=== PATIENT | male | born 1960 | race African-American/Black ===

== ENCOUNTER 2021-06-30 10:56 | Outpatient (REF) | payer BC, SELFPAY ==
[2021-06-30 11:17] LABS: MANUAL DIFF FLAG NO
[2021-06-30 11:42] LABS: Basophils Percent Auto 0.5 % (0-2); Eosinophils Absolute Auto 0.1 X10*3/uL (0.0-0.4); Hemoglobin 16.8 g/dl (14.0-18.0); Imm Gran Abs Auto 0.02 X10*3/uL (0.00-0.03); Imm Gran Pct Auto 0.3 % (0.0-0.4); Lymphocytes Percent Auto 51.6 % (20-40); Mean Corpuscular Hemoglobin 32.7 pg (27.0-33.0); Mean Corpuscular Volume 93.6 fL (80.0-98.0); Mean Platelet Volume 8.7 fL (9.4-12.4); Monocytes Absolute Auto 0.5 X10*3/uL (0.1-1.2); Monocytes Percent Auto 8.5 % (2-11); Neutrophils Absolute Auto 2.2 x10*3/uL (2.0-8.3); Neutrophils Percent Auto 38.1 % (45-73); Platelet Count 251 X10*3/uL (160-400); Red Blood Count 5.13 X10*6/uL (4.60-5.80); Red Cell Distribution Width 12.7 % (11.0-16.0); White Blood Count 5.9 X10*3/uL (4.8-10.8)
[2021-06-30 12:22] LABS: Alanine Aminotransferase 13 U/L (0-40); Albumin Level 4.4 g/dL (3.5-5.0); Alkaline Phosphatase 79 U/L (39-117); Anion Gap 14 (12-20); Aspartate Amino Transferase 16 U/L (5-37); Bilirubin Total 0.7 mg/dL (0.0-1.0); Blood Urea Nitrogen 10 mg/dL (9-16); Calcium 9.8 mg/dL (8.4-10.2); Carbon Dioxide 24 mmol/L (22-29); Chloride 106 mmol/L (96-108); Cholesterol 201 mg/dL; Estimated Glomerular Filt Rate > 60; Glucose Fasting 80 mg/dL (60-99); HDL Cholesterol 46 mg/dL; LDL Cholesterol Calculated 114 mg/dl; Potassium 4.7 mmol/L (3.3-5.1); Sodium 139 mmol/L (135-145); Triglycerides 206 mg/dL
[2021-06-30 12:34] LABS: Thyroid Stimulating Hormone 0.89 uIU/mL (0.32-4.0)
== END 2021-06-30 10:57 | disposition home or self-care (01) ==
LOC: HO.LAB 10:56
PROVIDERS: PCP Internal Medicine; Visit Provider Internal Medicine
DX: Z00.00 Encounter for general adult medical examination without abnormal findings (principal)
CPT/HCPCS: 36415; 80053; 80061; 84443; 85025

== ENCOUNTER → 2021-10-20 08:49 | Outpatient (BNVA) | payer BC, SELFPAY | PROVIDERS: PCP Internal Medicine; Visit Provider Urology | DX: N52.9 Male erectile dysfunction, unspecified (principal) ==

== ENCOUNTER 2021-11-02 03:50 | Emergency (ER) | payer BC, SELFPAY ==
--- NOTE | ~2021-11-02 | XR_ITS ---
EXAMINATION: XR PELVIS: XR HIP, LEFT CLINICAL INFORMATION: Pain COMPARISON: None TECHNIQUE: Two views of the left hip, with single AP view of the pelvis. FINDINGS: No acute fracture or dislocation. Femoral heads are spherical. Mild bilateral hip joint space narrowing. Small bilateral acetabular marginal osteophytes. Soft tissues unremarkable. XR/XR hip LT w PEL1V IMPRESSION: No acute fracture or dislocation. Mild degenerative changes.
[2021-11-02 03:58] VITALS: BP 169/85; PULSE 63; RESP 18; TEMP 36.6; O2SAT 98; BMI 23.7
--- NOTE | 2021-11-02 04:21 | ED.GENADULT ---
HPI - General Adult General Chief complaint: Extremity Injury, Lower Stated complaint: L hip/buttock pain (over a week) Time Seen by Provider: 11/02/21 04:19 Source: patient Limitations: no limitations History of Present Illness HPI narrative: This is a 61-year-old male who complains of pain in his left hip area for about a week and half. Patient denies any injury. He states he does work out at the gym. He states that typically when he has pain that goes away in time but this has persisted for several days. States he has no pain when he sitting down but only has pain with weight-bearing. He denies any low back pain. He denies any numbness or weakness in his left leg he denies any urinary symptoms or abdominal pain. Denies a prior history of arthritis. Related Data Previous Rx's Medication Instructions Recorded lisinopril 20 mg tablet 20 mg PO DAILY #90 tabs 05/06/21 sildenafil 100 mg tablet 100 mg PO DIRECTED #6 tabs 05/06/21 sildenafil 100 mg tablet 100 mg PO DAILY PRN sexual 10/20/21 activity 90 days #12 tabs meloxicam 7.5 mg tablet 7.5 mg PO DAILY #30 tabs 11/02/21 Allergies Allergy/AdvReac Type Severity Reaction Status Date / Time No Known Allergies Allergy Verified 11/02/21 03:59 Review of Systems Constitutional: Constitutional: Denies fever(s) Gastrointestinal: Gastrointestinal: Reports no additional gastrointestinal complaints Genitourinary: Genitourinary: Reports no additional male genitourinary complaints Musculoskeletal: Musculoskeletal: Denies back pain and Denies numbness Neurologic: Denies focal weakness, Denies numbness and Denies paresthesias [facility] Past Medical History Medical History Erectile dysfunction Hypertension Social History Social History Housing: Apartment Alcohol intake: never Patient Tobacco Use Status: Current everyday Tobacco user Tobacco use type: Cigarette Cigarettes Per Day: 10 e-Cigarette/Vaping Use: Never Used Advance Directives: No service: No Current occupational status: employed Cognitive needs: No Hearing needs: No Vision needs: No Physical Exam ED Vital Signs: Vital Signs - 24 hr 11/02/21 03:58 Temperature 97.9 F Pulse Rate 63 Respiratory Rate 18 Blood Pressure 169/85 H Pulse Oximetry 98 Oxygen Delivery Method Room Air BMI result Body Mass Index 23.7 Const General: no acute distress Orientation/consciousness: patient oriented x3 HENMT Head: Yes normal to inspection General nose exam: Normal external nose present Mouth: moist mucous membranes Throat: Yes posterior oropharynx normal, Yes tonsils normal and Yes uvula midline Eyes Eyelids: Yes eyelids normal Conjunctivae: conjunctivae normal Pupils: Equal, round and reactive pupils present Neck Neck: Yes supple Resp Effort & Inspection: normal respiratory effort Auscultation: clear to auscultation bilaterally Cardio Rate: regular rate Rhythm: regular rhythm Heart sounds: S1 normal heart sound present, S2 normal heart sound present, no gallops, no murmurs and no rubs GI Inspection: No distended Palpation (GI): Soft to palpation and nontender Auscultation: normal bowel sounds Back/Spine/Pelvis Other: No lumbar spine tenderness Skin General skin exam: other (Warm and dry) Neuro General: patient oriented x3 and CN's II-XI intact bilaterally Cranial nerves: Yes Equal, round and reactive pupils present Extrem Other: Mildly tender over left hip. No left buttock tenderness. Straight leg test negative General: Yes no pedal edema Psych Affect: normal affect Attitude: cooperative Medical Decision Making MDM Narrative Medical decision making narrative: Patient with left hip pain, worse on weight-bearing, 0 pain at rest. Patient may have osteoarthritis. Hip shows mild arthritic changes. Will start the patient on Mobic and the patient can follow-up with his primary care physician or Orthopedics Imaging Data Left hip and pelvis x-ray: My impression: Some sclerosis of the articular surface of the acetabulum, no osteoblastic or osteolytic lesions, no fracture Discharge Plan Discharge Clinical Impression: Arthritis of hip Patient Disposition: Home, Self-Care Instructions: Osteoarthritis (ED) Additional Instructions: Follow-up with her primary care physician, or with Dr. Morris of Orthopedic Prescriptions: New meloxicam 7.5 mg tablet 7.5 mg PO DAILY Qty: 30 0RF Rx Instructions: May increase to 2 tabs daily if no improvement in 7 days No Action lisinopril 20 mg tablet 20 mg PO DAILY Qty: 90 8RF sildenafil 100 mg tablet 100 mg PO DIRECTED Qty: 6 3RF sildenafil 100 mg tablet 100 mg PO DAILY PRN (Reason: sexual activity) 90 Days Qty: 12 3RF Rx Instructions: administer 60 minutes before intended activity Referrals: Irwin Morris MD [Physician] -
--- NOTE | 2021-11-02 04:41 | PC.NURSE ---
Pt returns from XRay on bed @ this time. Pt aware of plan to await XRay results.
[2021-11-02] MEDS: Ibuprofen 600 MG TABLET PO (05:12)
== END 2021-11-02 05:16 | disposition home or self-care (01) ==
PROVIDERS: Emergency Provider Emergency Medicine; PCP Internal Medicine
DX: M16.12 Unilateral primary osteoarthritis, left hip (principal)
CPT/HCPCS: 73502; 99283

== ENCOUNTER → 2022-08-09 08:39 | Outpatient (REF) | payer BC, SELFPAY ==
--- NOTE | 2022-08-09 08:44 | ECG_ITS ---
Test Reason : palpitations Blood Pressure : / mmHG Vent. Rate : 070 BPM Atrial Rate : 070 BPM P-R Int : 174 ms QRS Dur : 094 ms QT Int : 380 ms P-R-T Axes : 057 029 030 degrees QTc Int : 410 ms Normal sinus rhythm Nonspecific T wave abnormality Abnormal ECG No previous ECGs available Referred By: Wesley Bhatt Electronically Signed By:ADINA LÓPEZ MD
[2022-08-09 08:51] LABS: MANUAL DIFF FLAG NO
[2022-08-09 09:19] LABS: Basophils Percent Auto 0.3 % (0-2); Eosinophils Absolute Auto 0.1 X10*3/uL (0.0-0.4); Eosinophils Percent Auto 1.1 % (0-4); Hematocrit 44.7 % (42.0-52.0); Hemoglobin 15.3 g/dl (14.0-18.0); Imm Gran Abs Auto 0.02 X10*3/uL (0.00-0.03); Imm Gran Pct Auto 0.3 % (0.0-0.4); Lymphocytes Absolute Auto 2.5 X10*3/uL (1.2-4.9); Lymphocytes Percent Auto 38.9 % (20-40); Mean Corpuscular HGB Conc 34.2 g/dl (31.0-36.0); Mean Corpuscular Hemoglobin 31.7 pg (27.0-33.0); Mean Corpuscular Volume 92.5 fL (80.0-98.0); Mean Platelet Volume 9.2 fL (9.4-12.4); Monocytes Absolute Auto 0.4 X10*3/uL (0.1-1.2); Monocytes Percent Auto 6.8 % (2-11); Neutrophils Absolute Auto 3.3 x10*3/uL (2.0-8.3); Neutrophils Percent Auto 52.6 % (45-73); Platelet Count 260 X10*3/uL (160-400); Red Blood Count 4.83 X10*6/uL (4.60-5.80); Red Cell Distribution Width 12.5 % (11.0-16.0); White Blood Count 6.3 X10*3/uL (4.8-10.8)
[2022-08-09 10:41] LABS: Anion Gap 17 (12-20); Calcium 9.9 mg/dL (8.4-10.2); Carbon Dioxide 24 mmol/L (22-29); Chloride 103 mmol/L (96-108); Estimated Glomerular Filt Rate > 60; Glucose Random 123 mg/dL (60-115); Potassium 4.7 mmol/L (3.3-5.1); Sodium 139 mmol/L (135-145); Thyroid Stimulating Hormone 0.54 uIU/mL (0.32-4.0)
[2022-08-09 12:09] LABS: Blood Urea Nitrogen 14 mg/dL (9-16)
== END ==
LOC: HO.CARD 08:39
PROVIDERS: PCP Internal Medicine; Visit Provider Internal Medicine
DX: R00.2 Palpitations (principal); D64.9 Anemia, unspecified; E03.9 Hypothyroidism, unspecified
CPT/HCPCS: 36415; 80048; 84443; 85025; 93005

== ENCOUNTER → 2022-08-17 07:47 | Outpatient (REF) | payer BC, SELFPAY ==
--- NOTE | 2022-08-17 07:52 | CA_ITS ---
Transthoracic Echocardiogram Patient (Last, First, Middle): Gerald Diaz, Gender: Male Date of : 1960 Age: 62 Procedure Date: 08/17/2022 Procedure Type: Transthoracic Echocardiogram Location: OP Height: 182.88 cm Weight: 83.92 kg BSA: 2.06 m2 Heart Rate: 58 bpm BP: 138 / 68 mmHg Manager Resource: SB Referring MD: Wesley Bhatt MD Symptoms: R00.2 - Palpitations Study Quality: Adequate ECG Rhythm: Bradycardia Conclusions: - The left ventricular systolic function is hyperdynamic. The visually estimated ejection fraction is >70%. - No obvious valvular pathology seen on this study. Findings Left Ventricle Normal left ventricular cavity size. There is normal left ventricular wall thickness. The left ventricular systolic function is hyperdynamic. The visually estimated ejection fraction is >70%. There is no evidence of regional wall motion abnormalities. Diastolic function is normal for age. Right Ventricle Normal right ventricular cavity size and systolic function. Atria Both atria are normal in size. Aortic Valve There is a normal trileaflet aortic valve. There is no aortic valve stenosis. There is no aortic valve regurgitation. Mitral Valve The mitral valve appears normal. There is no mitral valve regurgitation. There is no mitral valve stenosis. Pulmonic Valve The pulmonic valve is likely normal. Tricuspid Valve Normal tricuspid valve structure. There is no tricuspid valve regurgitation. Tricuspid regurgitation envelope is inadequate for calculation of right ventricular systolic pressure. Great Vessels The asc aorta is normal in size. Venous The inferior vena cava is normal in size and collapses greater than 50% with inspiration. Pericardium/Pleural There is no evidence of pericardial effusion. Prior Study Comparison No prior study available for comparison. Recommendations, Care & Conclusions No obvious valvular pathology seen on this study. Measurements 2D Linear Measurements IVSd: 0.87 0.6-0.9/0.6-1.0 cm LVIDd: 4.70 3.9-5.3/4.2-5.9 cm LVIDd Index: 2.28 2.4-3.2/2.2-3.1 cm/m2 LVIDs: 2.71 2.0-3.6 cm LVPWd: 0.88 0.7-1.1 cm LA Diam: 2.80 2.7-3.8/3.0-4.0 cm LAIDs Index: 1.36 1.5-2.3 cm/m2 LV Mass: 170.96 67-162/88-224 g LV Mass Index: 82.99 43-95/49-115 g/m2 LVOT Diam: 2.50 3.0+(-)1.3 cm 2D Systolic Function EF 4C: 77.20 >55% EF 2C: 73.80 >55% EF BiP: 75.40 >55% Mitral Valve MV Pk E: 0.51 MV PK A: 0.64 MV Decel Time: 333.00 E/A: 0.80 E'Lateral: 6.85 E'Medial: 7.07 E/E' Med: 7.30 E/E' Lat: 7.50 PHT: 98.00 MVA PHT: 2.24 Decel Walsh: 1.54 Aortic Valve AoV Pk Jaiden: 0.85 AoV Pk Grad: 3.00 LEONEL: 4.20 LVOT LVOT Pk Jaiden: 0.73 LVOT Mn Jaiden: 0.49 LVOT VTI: 0.16 LVOT Pk Grad: 2.00 LVOT Mn Grad: 1.00 LVOT Diam: 2.50 LVOT Area: 4.91 Diastolic Function MV Pk E: 0.51 MV Pk A: 0.64 E/A: 0.80 E'Medial: 7.07 E/E' Med: 7.30 E' Laterial: 6.85 E/E' Lat: 7.50 Right Ventricle TAPSE (mm): 18.90 TVS' Jaiden: 12.70 Tricuspid Valve RA Press: 3.00 Great Vessels Aorta Sinus of Valsalva: 3.70 2.0-3.5 cm Ao Asc: 3.80 2.1-3.4 cm Pulmonary Veins Pulm Vein S/D 1.20 Pulmonary Valve PV Pk Jaiden: 0.93 Peak PV Grad: 3.00 Updated in Other Vendor System with Status of Final Franko Ruvalcaba MD electronically signed on 08/18/2022 12:30:20 PM with status of Final
== END ==
LOC: HO.CARD 07:47
PROVIDERS: Visit Provider Internal Medicine
DX: R00.2 Palpitations (principal)
CPT/HCPCS: 93306; Q9957

== ENCOUNTER 2023-08-15 10:42 | Outpatient (AMB) | payer BC, SELFPAY ==
[2023-08-15 10:51] VITALS: BP 148/96; PULSE 60; O2SAT 98; BMI 27.9
--- NOTE | 2023-08-15 10:51 | MHC.PC.OV ---
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 per policy Accompanied by: Self / Same As Patient Allergies No Known Allergies Allergy (Verified 08/15/23 10:51) Medication List - Last Reconciled 08/15/23 by Wesley Bhatt MD lisinopril 20 mg PO DAILY sildenafil 100 mg PO DAILY PRN 90 days Tobacco use date assessed: 08/15/23 Dental Screening Dental Screen Date: 08/15/23 Did you have a dental visit in the last 12 months?: Yes Did you have a dental problem in the last 6 months where you did not have access to dental care?: No Was dental information given to patient?: Patient has dentist HPI Annual Physical - due for colonoscopy HPI Details HTN and ED; refuses colonoscopy PFSH Medical History Erectile dysfunction Hypertension Social History Housing: Apartment Alcohol intake: never Patient Tobacco Use Status: Current everyday Tobacco user Tobacco use type: Cigarette Cigarettes Per Day: 10 e-Cigarette/Vaping Use: Never Used Second Hand Smoke Exposure: No service: No Current occupational status: employed Cognitive needs: No Hearing needs: No Vision needs: No Questionnaire PHQ-9 Over the last 2 weeks, how often have you been bothered by any of the following problems? 1. Little interest or pleasure in doing things: not at all 2. Feeling down, depressed, or hopeless: not at all 3. Trouble falling or staying asleep, or sleeping too much: not at all 4. Feeling tired or having little energy: not at all 5. Poor appetite or overeating: not at all 6. Feeling bad about yourself - or that you are a failure or have let yourself or your family down: not at all 7. Trouble concentrating on things, such as reading the newspaper or watching television: not at all 8. Moving or speaking so slowly that other people could have noticed. Or the opposite - being so fidgety or restless that you have been moving around a lot more than usual: not at all 9. Thoughts that you would be better off or of hurting yourself in some way: not at all Total score: 0 Depression Screening Interpretation: Negative Depression Screening Done: Yes 72018 - PHQ-9 Billing: Yes Source: Developed by Drs. Compa Borjas, Rut Mchugh, Abebe Kline and colleagues, with an educational kip from [employer]. Thrive Questionnaire Date Thrive assessed: 08/15/23 I am a: Patient What is your living situation today?: I have a steady place to live Within the past 12 months, did the food you bought not last and you didn't have the money to get more?: Never true Within the past 12 months, did you worry whether your food would run out before you got money to buy more?: Never true Do you have trouble paying for medicines?: No Do you have trouble getting transportation to medical appointments?: No Do you have trouble paying your heating and electricity bill?: No Do you have trouble taking care of your child, family member or friend?: No Do you have trouble with day-to-day activities such as bathing, preparing meals, shopping, managing finances, etc.?: No Are you currently unemployed and looking for a job?: No Are you interested in more education?: No Please select the resources that you would like help with: None THRIVE Score: 0 AUDIT C Alcohol Use Questionnaire (AUDIT-C) 1. How often do you have a drink containing alcohol?: Never Total Score: 0 Score Reviewed/Action Taken: Yes ITA-7 AMB Questionnaire ITA-7 Date ITA - 7 assessed: 08/15/23 Feeling nervous, anxious, or on edge: 0 = Not at all Not being able to stop or control worryin = Not at all Worrying too much about different things: 0 = Not at all Trouble relaxin = Not at all Being so restless that it is hard to sit still: 0 = Not at all Becoming easily annoyed or irritable: 0 = Not at all Feeling afraid as if something awful might happen: 0 = Not at all Total ITA-7 score (0-4 normal; 5-9 mild; 10-14 moderate; 15-21 severe): 0 Source: Developed by Rut Perez B.W. Jeison, Abebe Kline and colleagues, with an educational kip from [employer]. ITA-7 Assessment Billing ITA-7 Assessment Tool: ITA-7 Assessment 50361 Review of Systems Const Denies chills, Denies fatigue, Denies headache(s) and Denies weight loss Eyes Denies change in vision, Denies diplopia and Denies eye pain ENT Denies vertigo, Denies dizziness, Denies headache(s) and Denies nasal discharge Card Denies chest pain, Denies rapid heart rate and Denies dyspnea on exertion Resp Denies chest congestion, Denies cough, Denies pain with cough and Denies dyspnea on exertion GI Denies abdominal pain, Denies hematochezia and Denies change in bowel habits Musc Denies myalgias, Denies arthralgias and Denies joint swelling Skin/Breast Denies lesions and Denies unusual bruising Neuro Denies vertigo, Denies dizziness, Denies headache(s) and Denies focal weakness Endo Denies fatigue Physical exam (Primary Care) Vital Signs: Last Vital Signs Pulse 60 08/15/23 10:51 BP 148/96 H 08/15/23 10:51 Pulse Ox 98 08/15/23 10:51 Oxygen Delivery Method Room Air 08/15/23 10:51 BMI result Body Mass Index 27.9 Tobacco/Smoking Status: Tobacco use Status Tobacco use date assessed 08/15/23 08/15/23 10:55 Patient Tobacco Use Status Current everyday Tobacco 08/15/23 10:55 Tobacco use type Cigarette 08/15/23 10:55 e-Cigarette/Vaping Use Never Used 08/15/23 10:55 PHQ-9: PHQ-9 Score PHQ-9: Total score 0 08/15/23 10:56 Depression Screening Interpretation: Negative Thrive Assessment: Date of Thrive Assessment Date Thrive assessed 08/15/23 08/15/23 10:55 Const General: cooperative, healthy appearing and no acute distress Orientation/consciousness: oriented to person, oriented to place and oriented to time HENSD Head: Yes normal to inspection, Yes normocephalic and Yes atraumatic Mouth: Normal oral and palatal mucosa present and tongue normal Throat: Yes posterior oropharynx normal and Yes uvula midline Eyes General: appearance normal, both eyes and all related structures Neck Neck: Yes normal visual inspection, Yes full ROM and Yes no lymphadenopathy Thyroid: Thyroid normal Carotids: normal carotid upstroke Chest Chest palpation & inspection: normal inspection of the chest Resp Effort & Inspection: normal respiratory effort and able to speak in complete sentences Auscultation: clear to auscultation bilaterally Cardio Jugular venous distension: no JVD Palpation: normal PMI Rate: regular rate Rhythm: regular rhythm Heart sounds: S1 normal heart sound present and S2 normal heart sound present GI Inspection: Yes normal to inspection Palpation (GI): Soft to palpation and No hepatosplenomegaly present Auscultation: normal bowel sounds General: Yes no CVA tenderness Back/Spine/Pelvis Back: no CVA tenderness Skin General skin exam: no rashes or lesions noted Neuro General: oriented to person, oriented to place and oriented to time Extrem General: Yes normal to inspection and Yes full ROM Assessment and Plan Assessment & Plan (1) Physical exam: Code(s): Z00.00 - Encounter for general adult medical examination without abnormal findings Plan: labs (2) Erectile dysfunction: Code(s): N52.9 - Male erectile dysfunction, unspecified Plan: stable; same rx (3) Hypertension: Code(s): I10 - Essential (primary) hypertension Plan: stable Orders: Orders Lipid Panel Today E78.5 - Hyperlipidemia, unspecified Complete Blood Count Auto Diff Today D64.9 - Anemia, unspecified Comprehensive Geff. Panel Fast Today N28.9 - Disorder of kidney and ureter, unspecified Prostate Specific Antigen Scr Today Z00.00 - Encounter for general adult medical examination without abnormal findings Medications: Refilled sildenafil administer 60 minutes before intended activity 100 mg PO DAILY PRN 30 tabs 3RF sexual activity 90 days N52.9 - Male erectile dysfunction, unspecified Coding Level of Care Code Est Pt Prev Care 40-64y([id number]) Diagnoses Physical exam Z00.00 Erectile dysfunction N52.9 Hypertension I10 Additional Codes ITA-7 Assessment Billing - ITA-7 Assessment Tool: ITA-7 Assessment 76007 ([id number])
== END 2023-08-15 12:18 | disposition home or self-care (01) ==
PROVIDERS: PCP Internal Medicine; Visit Provider Internal Medicine
DX: Z00.00 Encounter for general adult medical examination without abnormal findings (principal); N52.9 Male erectile dysfunction, unspecified; I10 Essential (primary) hypertension
CPT/HCPCS: 99396

== ENCOUNTER 2024-10-23 08:59 | Outpatient (AMB) | payer BC, SELFPAY ==
[2024-10-23 09:02] VITALS: BP 170/94; PULSE 73; RESP 16; TEMP 36.9; O2SAT 97; BMI 27.3
--- NOTE | 2024-10-23 09:02 | A.OFFPC_ITS ---
Vital Signs 3 10/23/24 09:02 10/23/24 09:24 Height 6 ft Weight 201 lb 9.6 oz BMI 27.3 BP 170/94 H 184/102 H Blood Pressure Location Lt brachial Lt brachial Position Sitting Respiration 16 Pulse 73 Pulse Source Pulse Oximeter Temp 98.4 F Temp Source Oral Pulse Oximetry (%) 97 Oxygen Delivery Method Room Air Intake Visit Reasons: SHARON From Dr. 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 Accompanied by: Self / Same As Patient Allergies No Known Allergies Allergy (Verified 10/23/24 09:19) Medication List - Last Reconciled 10/23/24 by RONEN Kingston lisinopril 20 mg PO DAILY sildenafil 100 mg PO DAILY PRN 90 days Tobacco use date assessed: 10/23/24 Fall risk assessment: No Falls in past year Last assessed Fall Risk: 10/23/24 Dental Screening Dental Screen Date: 10/23/24 Did you have a dental visit in the last 12 months?: Yes Did you have a dental problem in the last 6 months where you did not have access to dental care?: No Was dental information given to patient?: Patient has dentist HPI SHARON From Dr. Bhatt / HTN 2 HPI0 Details Patient is a 64-year-old male is presenting to transition care from Dr. Bhatt who retired He was last seen in July 2023 in office He is noted to have uncontrolled HTN, with blood pressure 170/90, rechecked 184/102 He is currently on lisinopril 20 mg and is declining the addition of another blood pressure medication Reports drinking alcohol daily at least two of the large can of beers right after working out in the mornings States that he has had high blood pressure for over 40 years without any symptoms According to the patient, he exercises regularly and maintains a low sodium diet, so generally he is in good health Constipation is an ongoing issue for the patient, with bowel movements occurring infrequently but reportedly improving recently. The patient attributes his previous difficulties in part to inadequate hydration and uses dulcolax occasionally to aid bowel movements. No gastrointestinal bleeding or pain has been reported. The patient consumes limited water and primarily relies on coffee and beer as fluid intake, which might have diuretic effects contributing to his symptoms. He eats minimally, typically once a day, which may affect his overall nutritional status. Manages erectile dysfunction was sildenafil 100 mg daily p.r.n. Also noted to have a lump on the left side of his neck; he reports this has been there for years This does not bothers him and he is not concerned about it Reports that he is not interested in any imaging of the area He retired from working in the [employer] for over 21 years and is only working part-time 22 hours a week now [facility] Medical History (Updated 10/28/24 @ 23:57 by RONEN Kingston) Constipation Erectile dysfunction Hypertension Surgical History H/O cervical spine surgery Social History Housing: Apartment Alcohol intake: never Patient Tobacco Use Status: Current everyday Tobacco user Tobacco use type: Cigarette Cigarette Packs Per Day: 0.5 Cigarettes Per Day: 10 e-Cigarette/Vaping Use: Never Used Second Hand Smoke Exposure: No service: No Current occupational status: employed Cognitive needs: No Hearing needs: No Vision needs: Yes (Glasses) Questionnaire PHQ-9 Over the last 2 weeks, how often have you been bothered by any of the following problems? 1. Little interest or pleasure in doing things: not at all 2. Feeling down, depressed, or hopeless: not at all 3. Trouble falling or staying asleep, or sleeping too much: not at all 4. Feeling tired or having little energy: not at all 5. Poor appetite or overeating: not at all 6. Feeling bad about yourself - or that you are a failure or have let yourself or your family down: not at all 7. Trouble concentrating on things, such as reading the newspaper or watching television: not at all 8. Moving or speaking so slowly that other people could have noticed. Or the opposite - being so fidgety or restless that you have been moving around a lot more than usual: not at all 9. Thoughts that you would be better off or of hurting yourself in some way: not at all Total score: 0 Depression Screening Interpretation: Negative Depression Screening Done: Yes 42210 - PHQ-9 Billing: Yes Source: Developed by Drs. Compa Borjas, Rut Mchugh, Abebe Kline and colleagues, with an educational kip from [employer]. Thrive Questionnaire Date Thrive assessed: 10/23/24 I am a: Patient What is your living situation today?: I have a steady place to live Within the past 12 months, did the food you bought not last and you didn't have the money to get more?: I choose not to answer this question Within the past 12 months, did you worry whether your food would run out before you got money to buy more?: I choose not to answer this question Do you have trouble paying for medicines?: No Do you have trouble getting transportation to medical appointments?: No Do you have trouble paying your heating and electricity bill?: No Do you have trouble taking care of your child, family member or friend?: No Do you have trouble with day-to-day activities such as bathing, preparing meals, shopping, managing finances, etc.?: No Are you currently unemployed and looking for a job?: No Are you interested in more education?: No Please select the resources that you would like help with: None Currently or been in a relationship where the following occur: No concerns reported THRIVE Score: 0 AUDIT C Alcohol Use Questionnaire (AUDIT-C) 1. How often do you have a drink containing alcohol?: Never Total Score: 0 Score Reviewed/Action Taken: No ITA-7 AMB Questionnaire ITA-7 Date ITA - 7 assessed: 10/23/24 Feeling nervous, anxious, or on edge: 0 = Not at all Not being able to stop or control worryin = Not at all Worrying too much about different things: 0 = Not at all Trouble relaxin = Not at all Being so restless that it is hard to sit still: 0 = Not at all Becoming easily annoyed or irritable: 0 = Not at all Feeling afraid as if something awful might happen: 0 = Not at all Total ITA-7 score (0-4 normal; 5-9 mild; 10-14 moderate; 15-21 severe): 0 Source: Developed by Drs. Compa Borjas, Rut Mchugh, Abebe Kline and colleagues, with an educational kip from [employer]. ITA-7 Assessment Billing ITA-7 Assessment Tool: ITA-7 Assessment 24845 Review of Systems Const Denies headache(s) Eyes Denies loss of vision ENT Denies vertigo, Denies dizziness, Denies headache(s) and Denies sore throat Card Denies chest pain, Denies leg edema and Denies lightheadedness Resp Denies cough, Denies hemoptysis and Denies wheezing GI Denies abdominal pain, Denies melena, Reports constipation, Denies diarrhea and Denies vomiting Reports erectile dysfunction, Denies dysuria, Denies urinary frequency and Denies urinary urgency Musc Denies arthralgias, Denies joint swelling, Denies numbness and Denies tingling Skin/Breast Reports other (Left posterior neck lump) Neuro Denies Abnormal speech present, Denies behavioral changes, Denies vertigo, Denies dizziness, Denies headache(s), Denies loss of vision, Denies memory loss, Denies numbness and Denies tingling Psych Denies anxiety, Denies behavioral changes, Denies depression, Denies memory loss and Denies panic attacks Jonathan/Lymph Denies easy bleeding and Denies easy bruising Aller/Immun Denies wheezing Physical exam (Primary Care) Vital Signs: Last Vital Signs Temp 98.4 F 10/23/24 09:02 Pulse 73 10/23/24 09:02 Resp 16 10/23/24 09:02 BP 184/102 H 10/23/24 09:24 Pulse Ox 97 10/23/24 09:02 Oxygen Delivery Method Room Air 10/23/24 09:02 BMI result Body Mass Index 27.3 Tobacco/Smoking Status: Tobacco use Status Tobacco use date assessed 10/23/24 10/23/24 09:10 Patient Tobacco Use Status Current everyday Tobacco 10/23/24 09:10 Tobacco use type Cigarette 10/23/24 09:10 e-Cigarette/Vaping Use Never Used 10/23/24 09:10 PHQ-9: PHQ-9 Score PHQ-9: Total score 0 10/23/24 09:22 Depression Screening Interpretation: Negative Thrive Assessment: Date of Thrive Assessment Date Thrive assessed 10/23/24 10/23/24 09:10 Currently or been in a relationship where the following occur: No concerns reported Const General: healthy appearing, no acute distress, alert and awake Nutritional Appearance: well nourished Orientation/consciousness: oriented to person, oriented to place and oriented to time HENMT Ears: TM's normal bilaterally General nose exam: Normal nasal mucous membranes and turbinates present Eyes Conjunctivae: conjunctivae normal Sclerae: sclerae normal Pupils: Equal, round and reactive pupils present Neck Neck: Yes no lymphadenopathy and Yes no JVD Thyroid: Thyroid normal Carotids: no bruits Neck images: 2 1. Left neck lump, soft area consistent with a lipoma Resp Effort & Inspection: normal respiratory effort and not tachypneic Auscultation: no crackles, no rales, no rhonchi and no wheezes Cardio Rate: regular rate Rhythm: regular rhythm Heart sounds: no murmurs and normal S1 and S2 GI Palpation (GI): Soft to palpation, nontender, no hepatomegaly and no splenomegaly Auscultation: normal bowel sounds General: Yes no CVA tenderness Back/Spine/Pelvis Back: no CVA tenderness Skin General skin exam: dry skin and other (Left neck lump) Neuro General: oriented to person, oriented to place and oriented to time Cranial nerves: Yes Equal, round and reactive pupils present Speech: No Abnormal speech present Gait exam (Neuro): Normal gait present Motor exam (neuro): no tremor noted Extrem Right upper extremity: full ROM Left upper extremity: full ROM Right lower extremity: full ROM; no edema Left lower extremity: full ROM; no edema Psych Mental Status: mental status grossly normal Speech and movement: Normal speech and movement present Affect: normal affect Attitude: cooperative Thought process: Normal thought process present Coding Level of Care Code Est Pt Level 3 (74279) Diagnoses Hypertension, unspecified type I10 Hypertension type: unspecified Erectile dysfunction, unspecified erectile dysfunction type N52.9 Erectile dysfunction type: unspecified Slow transit constipation K59.01 Constipation type: slow transit constipation Mass of left side of neck R22.1 Additional Codes ITA-7 Assessment Billing - ITA-7 Assessment Tool: ITA-7 Assessment 70159 ([id number]) PHQ-9 - 22523 - PHQ-9 Billing: Yes ([id number]) Time Spent (min) 37 Assessment & Plan Assessment & Plan (1) Hypertension: Code(s): I10 - Essential (primary) hypertension Category: Medical Qualifiers: Hypertension type: unspecified Qualified Code(s): I10 - Essential (primary) hypertension Plan: Uncontrolled blood pressure Increase lisinopril 40 mg Reinforced low-sodium diet-systolic goal 130 mmHg Return in 1 week blood pressure check-nurse visit (2) Erectile dysfunction: Code(s): N52.9 - Male erectile dysfunction, unspecified Category: Medical Qualifiers: Erectile dysfunction type: unspecified Qualified Code(s): N52.9 - Male erectile dysfunction, unspecified Plan: Continue sildenafil 100 mg daily p.r.n. Follow up with Urology as scheduled (3) Constipation: Code(s): K59.00 - Constipation, unspecified Category: Medical Qualifiers: Constipation type: slow transit constipation Qualified Code(s): K59.01 - Slow transit constipation Plan: Most likely due to low fluid intake and high consumption of beer and coffee Encouraged fluids and dietary fiber Continue Dulcolax tab OTC as needed (4) Mass of left side of neck: Code(s): R22.1 - Localized swelling, mass and lump, neck Category: Medical Plan: Left cervical mass consistent with lipoma Reports existence for years without any changes or symptoms Declines imaging, we will continue to monitor Plan We will order labs and advise. Follow up in 3 months Orders: Orders 2 Complete Blood Count Auto Diff 10/23/24 I10 - Essential (primary) hypertension, Z. - Encounter for general adult medical examination without abnormal findings UA CC w/rflx Micro + Cult 10/23/24 I10 - Essential (primary) hypertension, Z00. - Encounter for general adult medical examination without abnormal findings TSH reflex Free T4 10/23/24 I10 - Essential (primary) hypertension, Z00. - Encounter for general adult medical examination without abnormal findings Vitamin D 25-OH Total 10/23/24 I10 - Essential (primary) hypertension, Z00. - Encounter for general adult medical examination without abnormal findings PSA,Total (Free>4and<10) 10/23/24 I10 - Essential (primary) hypertension, Z00. - Encounter for general adult medical examination without abnormal findings Comprehensive [place]. Panel Fast 10/23/24 I10 - Essential (primary) hypertension, Z00. - Encounter for general adult medical examination without abnormal findings Lipid Panel 10/23/24 I10 - Essential (primary) hypertension, Z00. - Encounter for general adult medical examination without abnormal findings Medications: New 2 lisinopril 40 mg PO DAILY 30 tabs 2RF Discontinued 2 lisinopril Discontinued Reason: Doctor's Order 20 mg PO DAILY 90 tabs 8RF
[2024-10-23 09:24] VITALS: BP 184/102
--- OUTSIDE RECORDS SUMMARY | 2024-10-23 09:42 | XMS_ITS ---
Author Name [facility] Organization Unknown Care Team Organization Name Specialty Phone Email Start Date End [facility] 04/06/2024
== END 2024-10-23 09:50 | disposition home or self-care (01) ==
DX: I10 Essential (primary) hypertension (principal); N52.9 Male erectile dysfunction, unspecified; K59.01 Slow transit constipation; R22.1 Localized swelling, mass and lump, neck

== ENCOUNTER → 2024-10-23 08:59 | Outpatient (BNVA) | payer BC, SELFPAY | PROVIDERS: PCP Internal Medicine | DX: I10 Essential (primary) hypertension (principal); K59.00 Constipation, unspecified; N52.9 Male erectile dysfunction, unspecified; K59.01 Slow transit constipation; R22.1 Localized swelling, mass and lump, neck | CPT/HCPCS: 96127 ==

== ENCOUNTER → 2024-11-12 08:45 | Outpatient (BNVA) | payer BC, SELFPAY | DX: Z13.89 Encounter for screening for other disorder (principal) ==

== ENCOUNTER 2025-01-23 08:59 | Outpatient (AMB) | payer MEDICARE, SELFPAY ==
--- NOTE | 2025-01-23 09:03 | A.OFFPC_ITS ---
Vital Signs 01/23/25 09:04 01/23/25 09:28 Height 6 ft Weight 196 lb 8 oz BMI 26.6 BP 150/82 H 158/88 H Blood Pressure Location Lt brachial Lt brachial Position Sitting Sitting Pulse 81 Pulse Source Pulse Oximeter Temp 97.3 F Temp Source Temporal Artery Scan Pulse Oximetry (%) 98 Oxygen Delivery Method Room Air Intake Visit Reasons: HTN/constipation Intake Note: Patient is here to follow up on HTN, Constipation. 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 Firearms Model Maker: Not Required per policy Accompanied by: Self / Same As Patient Allergies No Known Allergies Allergy (Verified 01/23/25 09:13) Medication List - Last Reconciled 01/23/25 by RONEN Kingston amlodipine 10 mg PO DAILY lisinopril 40 mg PO DAILY sildenafil 100 mg PO DAILY PRN 90 days Tobacco use date assessed: 01/23/25 Fall risk assessment: No Falls in past year Last assessed Fall Risk: 01/23/25 Dental Screening Dental Screen Date: 10/23/24 HPI HTN/constipation HPI Details Patient is a 65-year-old male with significant past medical history of HTN, constipation, intermittent palpitation Presenting follow up for uncontrolled blood pressure. The patient also had preordered blood work that has not been completed as yet. Patient reports that he will try to get this done sometime this week. Reports that he was feeling nervous this morning coming in this morning out of fear that his blood pressure was going to be elevated. The patient reports that he thinks that his anxiety of coming in the clinic has been causing his blood pressure to be high because he has cut out salt entirely out of his diet. He does not eat a lot of meat and he has been working out, drinking more water, he cut down on how much alcohol he is drinking. Patient reports that he will have his son, who works in the medical field check his blood pressure at home while he is comfortable and record the readings. The patient we will bring these readings at his follow up appointment in 1 month with nurse for blood pressure check. The patient will also follow up in 3 months ongoing hypertension. Added that high blood pressure runs in his family and he thinks that this is part of the reason as well. [facility] Medical History Constipation Erectile dysfunction Hypertension Surgical History H/O cervical spine surgery Social History (Updated 01/23/25 @ 09:08 by JACKY Raymundo) Housing: Apartment Alcohol intake: current Alcohol intake frequency: 0-2 drinks per day Alcohol type: beer Patient Tobacco Use Status: Former Tobacco user Tobacco use type: Cigarette Cigarette Packs Per Day: 0.5 Cigarettes Per Day: 10 e-Cigarette/Vaping Use: Never Used Second Hand Smoke Exposure: Yes service: No Current occupational status: employed Cognitive needs: No Hearing needs: No Vision needs: Yes (Glasses) Questionnaire Thrive Questionnaire Date Thrive assessed: 10/23/24 I am a: Patient What is your living situation today?: I have a steady place to live Within the past 12 months, did the food you bought not last and you didn't have the money to get more?: I choose not to answer this question Within the past 12 months, did you worry whether your food would run out before you got money to buy more?: I choose not to answer this question Do you have trouble paying for medicines?: No Do you have trouble getting transportation to medical appointments?: No Do you have trouble paying your heating and electricity bill?: No Do you have trouble taking care of your child, family member or friend?: No Do you have trouble with day-to-day activities such as bathing, preparing meals, shopping, managing finances, etc.?: No Are you currently unemployed and looking for a job?: No Are you interested in more education?: No Please select the resources that you would like help with: None Currently or been in a relationship where the following occur: No concerns reported THRIVE Score: 0 ITA-7 AMB Questionnaire ITA-7 Date ITA - 7 assessed: 10/23/24 Source: Developed by Drs. Compa Borjas, Rut Mchugh, Abebe Kline and colleagues, with an educational kip from [employer]. Review of Systems Const Denies body aches, Denies chills, Denies fever(s), Denies headache(s) and Denies poor appetite Eyes Reports no additional complaints ENT Denies dysphagia, Denies dizziness, Denies headache(s) and Denies odynophagia Card Denies chest pain, Denies syncope, Denies edema, Denies irregular heart rhythm, Denies lightheadedness and Denies dyspnea Resp Denies cough and Denies dyspnea GI Denies abdominal pain, Denies constipation, Denies dysphagia, Denies diarrhea, Denies nausea, Denies odynophagia and Denies vomiting Reports no additional complaints Musc Reports no additional complaints and Denies abnormal gait Skin/Breast Reports system reviewed and no additional complaints, except as documented Neuro Denies abnormal gait, Denies dizziness, Denies syncope and Denies headache(s) Psych Reports no additional complaints Physical exam (Primary Care) Vital Signs: Last Vital Signs Temp 97.3 F 01/23/25 09:04 Pulse 81 01/23/25 09:04 BP 158/88 H 01/23/25 09:28 Pulse Ox 98 01/23/25 09:04 Oxygen Delivery Method Room Air 01/23/25 09:04 BMI result Body Mass Index 26.6 Tobacco/Smoking Status: Tobacco use Status Tobacco use date assessed 01/23/25 01/23/25 09:06 Patient Tobacco Use Status Former Tobacco user 01/23/25 09:08 Tobacco use type Cigarette 01/23/25 09:08 e-Cigarette/Vaping Use Never Used 01/23/25 09:08 Thrive Assessment: Date of Thrive Assessment Date Thrive assessed 10/23/24 01/23/25 09:06 Currently or been in a relationship where the following occur: No concerns reported Const General: cooperative, healthy appearing, comfortable and no acute distress Orientation/consciousness: patient oriented x3 HENMT Head: Yes normocephalic Ears: hearing grossly normal bilaterally General nose exam: Normal external nose present Eyes General: appearance normal, both eyes and all related structures Conjunctivae: conjunctivae normal Neck Neck: Yes full ROM and Yes no lymphadenopathy Resp Effort & Inspection: normal respiratory effort Auscultation: clear to auscultation bilaterally, no crackles, no rales, no rhonchi and no wheezes Cardio Rate: regular rate Rhythm: regular rhythm Skin General skin exam: no rashes or lesions noted Neuro General: patient oriented x3 Gait exam (Neuro): Normal gait present Extrem General: Yes normal to inspection, Yes full ROM and No edema Psych Affect: normal affect Attitude: cooperative Insight: Good insight present (Psych) Judgement: Good judgement present (Psych) Coding Level of Care Code Est Pt Level 3 (03285) Diagnoses Hypertension, unspecified type I10 Hypertension type: unspecified Alcohol use F10.90 Time Spent (min) 36 Assessment & Plan Assessment & Plan (1) Hypertension: Code(s): I10 - Essential (primary) hypertension Category: Medical Qualifiers: Hypertension type: unspecified Qualified Code(s): I10 - Essential (primary) hypertension Plan: Plan The patient is advised to monitor blood pressure at home and bring the readings to the clinic for comparison. He is encouraged to maintain his current exercise regimen and dietary habits, which include a low-fat, low-meat diet with frequent sardine consumption. Follow-up is recommended in one month with a nurse visit to review home blood pressure readings and in three months for a regular check-up. The patient is advised to check blood pressure at home in a relaxed setting to reduce anxiety-related elevation. He is encouraged to bring his home blood pressure machine to the clinic to ensure consistency in readings. (2) Alcohol use: Code(s): F10.90 - Alcohol use, unspecified, uncomplicated Category: Social Hx Plan: Encouraged continue cutting down on alcohol consumption
[2025-01-23 09:04] VITALS: BP 150/82; PULSE 81; TEMP 36.3; O2SAT 98; BMI 26.6
[2025-01-23 09:28] VITALS: BP 158/88
--- OUTSIDE RECORDS SUMMARY | 2025-01-23 09:37 | XMS_ITS ---
Author Name [facility] Organization Unknown Care Team Organization Name Specialty Phone Email Start Date End [facility] 04/06/2024 01/20/2025
== END 2025-01-23 09:33 | disposition home or self-care (01) ==
LOC: HO.HMCH 08:59
DX: I10 Essential (primary) hypertension (principal); F10.90 Alcohol use, unspecified, uncomplicated

== ENCOUNTER → 2025-01-23 08:59 | Outpatient (BNVA) | payer MEDICARE, SELFPAY | DX: I10 Essential (primary) hypertension (principal); K59.00 Constipation, unspecified; F10.90 Alcohol use, unspecified, uncomplicated | CPT/HCPCS: 99212 ==